=== PATIENT | male | born 1975 | race Caucasian/White ===

== ENCOUNTER 2023-02-22 22:52 | Emergency (ER) | payer BC, SELFPAY ==
[2023-02-22] VITALS (11 sets, daily range): BP systolic 93–119; BP diastolic 60–71; PULSE 65–77; RESP 12–27; TEMP 37.4; O2SAT 79–97; BMI 29.5
--- NOTE | 2023-02-22 23:03 | ECG_ITS ---
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
--- NOTE | 2023-02-22 23:17 | ED_ITS ---
HPI - Syncope General Chief Complaint: Syncope Stated Complaint: Syncope Time Seen by Provider: 02/22/23 23:00 Source: patient and family History of Present Illness HPI narrative: This 47-year-old male presents for evaluation after he had a syncopal event while in the shower earlier this evening. The patient states that he started feeling unwell earlier in the day while at work. He states that his skin was tender and hot to the touch. He went home and lay down because he was not feeling well. He states that even putting his head down on the pillow causes the skin on the back of his neck and shoulders to burn. He states that his daughter was sick for approximately 24 hours yesterday with an upper respiratory illness. After taking a nap and taking ibuprofen he got up and took a shower. He was taking a cold shower he states to help himself feel better because he was feeling hot and sweaty and while in the shower started feeling dizzy and passed out. He has apparently had syncopal events like this in the past. The patient's heard him fall and went into the bathroom and he was sitting in the shower but he was awake and conversant. He denies that he injured himself while in the shower. He states he felt like he was going to pass out and prepare himself for that. He denies any chest pain or shortness of breath. He has no headache, slurred speech, blurred vision, confusion or other focal neurologic symptoms. He denies any abdominal pain nausea vomiting or diarrhea. He has no neck pain or stiffness. Has no skin rash. He denies any sick contacts. He has no difficulty breathing or swallowing. He did relate to the nurse taking care of him that he is on blood pressure medications and has been on the same blood pressure medications for many years despite the fact that he has lost over 100 pounds since 2016. Related Data Home Medications Medication Instructions Recorded Confirmed duloxetine 60 mg capsule,delayed 60 mg PO DAILY 02/22/23 02/22/23 release lisinopril 20 2 tab PO DAILY 02/22/23 02/22/23 mg-hydrochlorothiazide 12.5 mg tablet Allergies Allergy/AdvReac Type Severity Reaction Status Date / Time amoxicillin Allergy Verified 02/22/23 23:00 Review of Systems ROS Status of ROS 10 or more systems reviewed and unremarkable except as noted in history and below Exam Narrative Exam Narrative: Nurses note and vital signs reviewed and patient is not hypoxic. Has a very low- grade fever at 99.3, normal pulse, normal blood pressure, he is not hypoxic. Orthostatic vital signs were minimally positive with a blood pressure lying of 111/61 and pulse of 68 with blood pressure sitting 106/64 and pulse of 71 and blood pressure standing 93/60 with a pulse of 77 General: The patient appears well and in no apparent distress. Patient is resting comfortably on cart. GCS 15 Skin: Warm, dry, no pallor noted. There is no rash noted. Head: Normocephalic, atraumatic Eye: Normal conjunctiva, no drainage, EOMI. PERRL Ears, Nose, Mouth, and Throat: oral mucosa is moist. Nares patent. Mouth without vesicles. Pharyngeal erythema or exudate noted Neck: supple, no meningeal signs, no midline bony vertebral tenderness or step- off Cardiovascular: Regular Rate and Rhythm S1-S2, pulses are brisk and equal bilaterally Respiratory: Patient is in no distress, no accessory muscle use, lungs are clear to auscultation, no wheezing, rales or rhonchi Back: non-tender, no CVA tenderness bilaterally to percussion. GI: Normal bowel sounds, no tenderness to palpation, no masses appreciated. No rebound, guarding, or rigidity noted. 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, no facial droop, negative pronator drift, positive rapid alternating hand movements, upper and lower extremity strength and sensation is intact, and a stroke scale is 0 Psychiatric: Cooperative Constitutional Vital Signs, click to edit/add: Last Vital Signs Temp 99.3 F 02/22/23 22:57 Pulse 64 02/23/23 00:50 Resp 18 02/23/23 00:50 BP 122/71 02/23/23 00:38 Pulse Ox 97 02/22/23 23:00 Course Vital Signs Vital signs: Vital Signs Temperature 99.3 F 02/22/23 22:57 Pulse Rate 67 02/22/23 22:57 Respiratory Rate 16 02/22/23 22:57 Blood Pressure 119/71 02/22/23 22:57 Pulse Oximetry 97 02/22/23 22:57 Temperature 99.3 F 02/22/23 22:57 Pulse Rate 64 02/23/23 00:50 Respiratory Rate 18 02/23/23 00:50 Blood Pressure 122/71 02/23/23 00:38 Pulse Oximetry 97 02/22/23 23:00 MDM - Syncope MDM Narrative Medical decision making narrative: This 47-year-old male who has a history of hypertension and has lost over 100 pounds in the past 5 years presents for evaluation after he had a syncopal event at home. The patient stated that he wasn't feeling well throughout the day and was having chills and sweats. He states he was feeling extremely uncomfortable and even his skin her. After taking some ibuprofen and then got up and took a cold shower. At the end of his cold shower he started feeling dizzy like he may pass out and passed out in the shower. He states he could feel he was going to pass out and did not get hurt when he did pass out. His heard him fall and went into the bathroom and he was sitting in the shower. He was awake and alert at that time. He denies any chest pain or shortness of breath. His daughter has recently been sick with a febrile illness that lasted only proximally 24 hours. He had mildly positive orthostatic vital signs. An IV was placed and he was given IV fluids and Tylenol. EKG is a sinus rhythm at 66 beats for minute with no acute changes. Routine labs are reviewed. He has a normal white count and hemoglobin. Troponin is normal. Electrolytes are normal with the exception of a mildly low potassium at 3.3. Urine is negative for infection. Chest x-ray does not show any sign of pneumonia. Respiratory panel is negative. Delta troponin is unchanged. He is feeling better, hemodynamically stable and will be discharged home with [facility] for rest and copious fluid intake,, close follow up with his PCP to evaluate the need for BP medications after his weight loss and generalized improved health. Lab Data Attestation: I reviewed the patient's lab results. (Labs are normal) Labs: Lab Results 02/22/23 02/23/23 02/23/23 Range/Units 23:37 00:38 01:31 WBC 6.6 (4.0-11.0) 10^3/uL RBC 4.13 L (4.70-6.10) 10^6/uL Hgb 13.3 L (14.0-18.0) g/dL Hct 37.8 L (42.0-54.0) % MCV 91.5 (80.0-94.0) fL MCH 32.2 (25.9-34.0) pg MCHC 35.2 (29.9-35.2) g/dL RDW 11.4 (11.0-15.0) % Plt Count 175 (150-450) 10^3/uL MPV 10.2 (9.5-13.5) fL Neut % (Auto) 86.5 H (43.0-75.0) % Lymph % (Auto) 6.2 L (20.5-60.0) % [place] % (Auto) 5.9 (1.7-12.0) % Eos % (Auto) 0.5 L (0.9-7.0) % Baso % (Auto) 0.6 (0.2-2.0) % Neut # (Auto) 5.7 (1.4-6.5) 10^3/uL Lymph # (Auto) 0.4 L (1.2-3.8) 10^3/uL [place] # (Auto) 0.4 (0.3-0.8) 10^3/uL Eos # (Auto) 0.0 (0.0-0.7) 10^3/uL Baso # (Auto) 0.0 (0.0-0.1) 10^3/uL Abs Immat Gran (auto) 0.02 (0.00-0.03) 10^3/uL Imm/Tot Granulo (auto) 0.3 (0.0-0.5) % Sodium 131 L (136-145) mmol/L Potassium 3.3 L (3.5-5.1) mmol/L Chloride 97 L (98-107) mmol/L Carbon Dioxide 22.2 (21.0-32.0) mmol/L Anion Gap 15.1 BUN 23.0 H (7.0-18.0) mg/dL Creatinine 0.77 (0.70-1.30) mg/dL Est GFR ( Amer) >60 (>=60) Est GFR (Non-Af Amer) >60 (>=60) BUN/Creatinine Ratio 29.9 Glucose 92 (74-106) mg/dL Calcium 8.2 L (8.5-10.1) mg/dL Total Bilirubin 1.9 H (0.2-1.0) mg/dL AST 21 (15-37) U/L ALT 28 (16-63) U/L Alkaline Phosphatase 70 (46-116) U/L Troponin I High Sens 7.6 7.7 (4.0-76.1) pg/mL Total Protein 6.1 L (6.4-8.2) g/dL Albumin 3.6 (3.4-5.0) g/dL Globulin 2.5 g/dL Albumin/Globulin Ratio 1.4 Urine Color Yellow (YELLOW) Urine Clarity Clear (CLEAR) Urine pH 6.0 (5.0-9.0) Ur Specific [place] 1.020 (1.005-1.025) Urine Protein Negative (NEG/TRACE) mg/dL Urine Glucose (UA) Negative (NEGATIVE) mg/dL Urine Ketones Trace A (NEGATIVE) mg/dL Urine Occult Blood Negative (NEGATIVE) Urine Nitrite Negative (NEGATIVE) Urine Bilirubin Negative (NEGATIVE) Urine Urobilinogen 0.2 (0.2-1.0) EU/dL Ur Leukocyte Esterase Negative (NEGATIVE) Urine RBC 0-2 (0-2) #/HPF Urine WBC None seen (NONE SEEN) #/HPF Ur Squamous Epith Cells None seen (NONE/RARE) #/LPF Urine Crystals None seen (None Seen) #/HPF Urine Bacteria None seen (NONE SEEN) #/HPF Urine Casts None seen (NONE SEEN) #/LPF Urine Mucus None seen (NONE SEEN) Ur Culture Indicated? No Adenovirus (PCR) Not detected (NOT DETECTE) C. pneumoniae DNA (PCR) Not detected (NOT DETECTE) Coronavirus Type OC43 Not detected (NOT DETECTE) Coronavirus Type HKU1 Not detected (NOT DETECTE) Coronavirus Type 229E Not detected (NOT DETECTE) Coronavirus Type NL63 Not detected (NOT DETECTE) Human Metapneumovir PCR Not detected (NOT DETECTE) M. pneumoniae (PCR) Not detected (NOT DETECTE) Parainfluenza PCR Not detected (NOT DETECTE) Parainfluenza 2 (PCR) Not detected (NOT DETECTE) Parainfluenza 3 (PCR) Not detected (NOT DETECTE) Parainfluenza 4 (PCR) Not detected (NOT DETECTE) RSV (RT-PCR) Not detected (NOT DETECTE) Entero/Rhino (PCR) Not detected (NOT DETECTE) SARS-CoV-2 (PCR) Not detected (NOT DETECTE) Bordetella pertussis (PCR) Not detected (NOT DETECTE) B parapertussis DNA PCR Not detected (NOT DETECTE) Influenza Type A (PCR) Not detected (NOT DETECTE) Influenza Type B (PCR) Not detected (NOT DETECTE) ECG Data Attestation: I personally reviewed and interpreted this ECG as follows: (Sinus rhythm at 66 beats for minute, normal axis, normal intervals, no acute ST segment elevation or T-wave inversion) Discharge Plan Discharge Chief Complaint: Syncope Clinical Impression: Syncope, Acute febrile illness Patient Disposition: Home, Self-Care Time of Disposition Decision: 02:11 Condition: Good Prescriptions / Home Meds: No Action lisinopril-hydrochlorothiazide 20-12.5 mg tablet 2 tab PO DAILY duloxetine 60 mg capsule,delayed release(DR/EC) 60 mg PO DAILY Instructions: Fever in Adults (ED), Syncope (ED) Stand Alone Forms: Portal Instructions Referrals: Akhil Haley MD [Primary Care Provider] - 1 week
[2023-02-22 23:51] LABS: Adenovirus NOT DETECTED (NOT DETECTE); Bordetella parapertussis NOT DETECTED (NOT DETECTE); Coronavirus 229E NOT DETECTED (NOT DETECTE); Coronavirus HKU1 NOT DETECTED (NOT DETECTE); Coronavirus NL63 NOT DETECTED (NOT DETECTE); Coronavirus OC43 NOT DETECTED (NOT DETECTE); Human Metapneumovirus NOT DETECTED (NOT DETECTE); Human Rhinovirus/Enterovirus NOT DETECTED (NOT DETECTE); Influenza A NOT DETECTED (NOT DETECTE); Influenza B NOT DETECTED (NOT DETECTE); Mycoplasma pneumoniae NOT DETECTED (NOT DETECTE); Parainfluenza Virus 1 NOT DETECTED (NOT DETECTE); Parainfluenza Virus 2 NOT DETECTED (NOT DETECTE); Parainfluenza Virus 3 NOT DETECTED (NOT DETECTE); Parainfluenza Virus 4 NOT DETECTED (NOT DETECTE); Respiratory Syncytial Virus NOT DETECTED (NOT DETECTE); SARS-CoV-2 NOT DETECTED (NOT DETECTE)
[2023-02-22 23:56] LABS: Basophils Percent Auto 0.6 % (0.2-2.0); Eosinophils Percent Auto 0.5 % (0.9-7.0); Hematocrit 37.8 % (42.0-54.0); Hemoglobin 13.3 g/dL (14.0-18.0); Immature Granulocytes Abs Auto 0.02 10^3/uL (0.00-0.03); Immature Granulocytes Pct Auto 0.3 % (0.0-0.5); Lymphocytes Absolute Auto 0.4 10^3/uL (1.2-3.8); Lymphocytes Percent Auto 6.2 % (20.5-60.0); Mean Corpuscular HGB Conc 35.2 g/dL (29.9-35.2); Mean Corpuscular Hemoglobin 32.2 pg (25.9-34.0); Mean Corpuscular Volume 91.5 fL (80.0-94.0); Mean Platelet Volume 10.2 fL (9.5-13.5); Monocytes Absolute Auto 0.4 10^3/uL (0.3-0.8); Monocytes Percent Auto 5.9 % (1.7-12.0); Neutrophils Absolute Auto 5.7 10^3/uL (1.4-6.5); Neutrophils Percent Auto 86.5 % (43.0-75.0); Platelet Count 175 10^3/uL (150-450); Red Blood Count 4.13 10^6/uL (4.70-6.10); Red Cell Distribution Width 11.4 % (11.0-15.0); White Blood Count 6.6 10^3/uL (4.0-11.0)
[2023-02-23] VITALS (15 sets, daily range): BP systolic 107–122; BP diastolic 60–71; PULSE 62–68; RESP 13–26
[2023-02-23] MEDS: 0.9 % SODIUM CHLORIDE 1,000 ML 1000 ML IV
[2023-02-23] MEDS: ACETAMINOPHEN 325 MG TABLET 650 MG PO (00:01)
[2023-02-23 00:11] LABS: Alanine Aminotransferase 28 U/L (16-63); Albumin Globulin Ratio 1.4; Albumin Level 3.6 g/dL (3.4-5.0); Alkaline Phosphatase 70 U/L (46-116); Anion Gap 15.1; Aspartate Amino Transferase 21 U/L (15-37); BUN Creatinine Ratio 29.9; Bilirubin Total 1.9 mg/dL (0.2-1.0); Calcium 8.2 mg/dL (8.5-10.1); Carbon Dioxide 22.2 mmol/L (21.0-32.0); Chloride 97 mmol/L (98-107); Estimated GFR (African America >60 (>=60); Estimated GFR (Non-African Ame >60 (>=60); Globulin 2.5 g/dL; Glucose 92 mg/dL (74-106); Potassium 3.3 mmol/L (3.5-5.1); Sodium 131 mmol/L (136-145); Total Protein 6.1 g/dL (6.4-8.2)
[2023-02-23 00:13] LABS: Troponin I High Sensitivity 7.6 pg/mL (4.0-76.1)
[2023-02-23 00:45] LABS: Bilirubin Urine NEGATIVE (NEGATIVE); Blood Urine NEGATIVE (NEGATIVE); Clarity Urine CLEAR (CLEAR); Color Urine YELLOW (YELLOW); Glucose Urine UA NEGATIVE (NEGATIVE); Ketones Urine TRACE mg/dL (NEGATIVE); Leukocyte Esterase Urine NEGATIVE (NEGATIVE); Nitrite Urine NEGATIVE (NEGATIVE); Protein Urine NEGATIVE (NEG/TRACE); Urobilinogen Urine 0.2 EU/dL (0.2-1.0)
--- NOTE | 2023-02-23 00:50 | XR_ITS ---
The [address] [address] Patient Name: RYAN TOLEDO MRN: [id number] date: 1975 Sex: M Assigned Patient Location: ER Current Patient Location: ER Accession/Order Number: [id number] Exam Date: 02/23/2023 01:00 Report Date: 02/23/2023 01:19 At the request of: NEAL MARKER Procedure: XR chest 2V EXAM: XR chest 2V HISTORY: fever, cough COMPARISON: None. TECHNIQUE: 2 views of the chest were obtained. FINDINGS: The cardiac silhouette is normal in size. The lungs are clear. There is no significant pneumothorax or pleural effusion. No acute osseous abnormality is seen. XR/XR chest 2V IMPRESSION: 1. No acute cardiopulmonary abnormality. Electronically authenticated by: Suhas PIERSON Date: 02/23/2023 01:19
[2023-02-23 00:51] LABS: Bacteria Urine NONE SEEN #/HPF (NONE SEEN); Cast Seen? NONE SEEN #/LPF (NONE SEEN); Crystals Seen? None Seen #/HPF (None Seen); Mucus Urine NONE SEEN (NONE SEEN); RBC Urine 0-2 #/HPF (0-2); Squamous Epithelial Cell Urine NONE SEEN #/LPF (NONE/RARE); Urine Culture Indicated NO; WBC Urine NONE SEEN #/HPF (NONE SEEN)
[2023-02-23] MEDS: 0.9 % SODIUM CHLORIDE 1,000 ML 125 ML IV (01:29)
[2023-02-23 01:53] LABS: Troponin I High Sensitivity 7.7 pg/mL (4.0-76.1)
== END 2023-02-23 02:19 | disposition home or self-care (01) ==
PROVIDERS: Emergency Provider Emergency Medicine; PCP Family Medicine
DX: R55 Syncope and collapse (principal); R50.9 Fever, unspecified; E87.6 Hypokalemia; Z20.822 Contact with and (suspected) exposure to COVID-19
CPT/HCPCS: 0202U; 36415; 71046; 80053; 81001; 84484; 85025; 93005; 96360; 99285